=== PATIENT | male | born 1935 | race Caucasian/White ===

== ENCOUNTER 2016-06-27 12:32 | Observation (INO) | payer OTHER ==
[~2016-06-27] VITALS: Ht 170.2 cm; Wt 69.4 kg
[~2016-06-27 12:32] MED LIST: ACID CONTROL20 MG PO; AMOX TR-K CLV1 EAC4 PO; AMOXICILLIN500 MG PO; ANTIVERT25 MG PO; ASPIR 8181 M1 PO; ATORVASTATIN CA10 MG PO; COLACE100 MG PO; CRESTOR10 MG PO; DURAGESIC12 MCG TD; FAMOTIDINE20 MG PO; IPRATR-ALBUTEROL3 ML AEROSOL; KEFLEX500 MG PO; LIDODERM 5% P1 PATCH PO; LIDODERM 5% P1 PATCH TD; LIPITOR10 MG PO; LOPRESSOR25 MG PO; MECLIZINE HCL12.5 M1 PO; METOPROLOL SUCC25 MG PO; MIRALAX255 GM PO; MOBIC15 MG PO; MOTRIN400 MG PO; NAPROSYN375 MG PO; NAPROXEN375 M1 PO; NAPROXEN500 MG PO; NORCO 5/3251 TABLET PO; PANTOPRAZOLE SO40 MG PO; PEPCID20 MG PO; PREDNISONE20 MG PO; PREDNISONE50 MG PO; PROTONIX40 MG PO; SENNA S TABLET1 EACH PO; TRAMADOL HCL50 MG PO; ULTRACET1 TABLET PO; ULTRAM50 MG PO; VALIUM2 MG PO; ZITHROMAX250 MG PO
[2016-06-27 13:20] LABS: PTT 30.3 (25-32)
[2016-06-27 13:35] LABS: BASOPHIL COUNT 0.1 K/uL (0-0.1); CHLORIDE 104 mEq/L (99-109); EOSINOPHIL (%) 3.3 % (0-5); EOSINOPHIL COUNT 0.3 K/uL (0-0.3); HEMATOCRIT 41.2 % (38.0-50.0); IMMATURE GRANULOCYTE (%) 0.4 % (0.0-0.7); IMMATURE GRANULOCYTE COUNT 0.3 K/uL; MCH 31.2 PG (29.0-34.0); MCHC 34.2 G/DL (30.0-36.0); MCV 91.2 FL (86-99); MEAN PLAT.VOLUME 10.4 uM^3 (9.0-12.4); MONOCYTE (%) 11.6 % (3-12); NEUTROPHIL (%) 60.4 % (45-76); NEUTROPHIL COUNT 5.2 K/uL (1.8-6.4); PLATELET COUNT 253 K/uL (156-360); POTASSIUM 4.4 mEq/L (3.7-5.4); RBC DIS.WIDTH-CV 13.4 % (11.8-14.6); RED BLOOD COUNT 4.52 M/uL (4.00-5.50); SODIUM 135 mEq/L (136-147); WHITE BLOOD COUNT 8.6 K/uL (4.1-10.2)
[2016-06-27 13:36] LABS: AMYLASE 72 IU/L (1-118)
[2016-06-27 13:37] LABS: GLUCOSE 114 mg/dL (70-99)
[2016-06-27 13:38] LABS: ANION GAP 10 MEQ/L (2-14)
[2016-06-27 13:39] LABS: TOTAL BILIRUBIN 0.5 mg/dL (0.0-1.0)
[2016-06-27 13:40] LABS: TROP-I INTERPRETATION NEGATIVE; TROPONIN-I < 0.01 ng/mL (0.0-0.30)
[2016-06-27 13:41] LABS: ALKALINE PHOSPHATASE 66 IU/L (3-129); GFR ESTIMATE (CALCULATED) > 59 mL/min/
[2016-06-27 13:42] LABS: UREA NITROGEN (BUN) 18 mg/dL (9-23)
[2016-06-27 13:44] LABS: LIPASE 16 U/L (1.0-51.0)
[2016-06-27] MEDS ORDERED: ASPIR 8181 M1 PO (14:50)
[2016-06-27 17:16] VITALS: BP 124/75
[2016-06-27 20:41] VITALS: BP 122/73
[2016-06-28] VITALS: BP 109/59
[2016-06-28 04:19] VITALS: BP 104/60
[2016-06-28 07:23] LABS: HDL CHOLESTEROL 49 MG/DL (Desirable>=40); LDL CHOLESTEROL 83 mg/dL (Desirable<100); NON-HDL CHOLESTEROL 106 mg/dL (Desirable<160); TOTAL CHOLESTEROL 155 mg/dL (Desirable<200); TRIGLYCERIDES 113 MG/DL (Normal: <150)
[2016-06-28 08:05] VITALS: BP 135/67
[2016-06-28] MEDS ORDERED: ASPIR-LOW81 MG PO (09:55)
[2016-06-28] MEDS ORDERED: PRAVACHOL40 MG PO (09:57)
== END 2016-06-28 11:19 | disposition home or self-care (01) ==
LOC: EME 12:32 → 5WEST 14:02 → EDOF 14:02 → 5WEST 16:47
PROVIDERS: Emergency Medicine; Hospitalist
DX: G45.9 Transient cerebral ischemic attack, unspecified (principal); Z86.73 Personal history of transient ischemic attack (TIA), and cerebral infarction without residual deficits; I10 Essential (primary) hypertension; E78.5 Hyperlipidemia, unspecified; F17.200 Nicotine dependence, unspecified, uncomplicated; J44.9 Chronic obstructive pulmonary disease, unspecified; N40.0 Benign prostatic hyperplasia without lower urinary tract symptoms; Z82.49 Family history of ischemic heart disease and other diseases of the circulatory system
CPT/HCPCS: 70450; 70496; 70498; 70551; 71010; 80053; 80061; 81003; 82150; 83690; 84484; 85025; 85610; 85730; 93005; 99281; 99285; G0378; J1650

== ENCOUNTER 2016-06-30 10:08 | Emergency (ER) | payer OTHER ==
[~2016-06-30] VITALS: Ht 170.2 cm; Wt 69.7 kg
[~2016-06-30 10:08] MED LIST changes: +ASPIR-LOW81 MG PO; +PRAVACHOL40 MG PO
[2016-06-30 10:37] VITALS: BP 148/82
== END 2016-06-30 11:13 | disposition left against medical advice (07) ==
LOC: EME 10:08
DX: R42 Dizziness and giddiness (principal); Z53.21 Procedure and treatment not carried out due to patient leaving prior to being seen by health care provider
CPT/HCPCS: 71020; 80048; 85027; 93005

== ENCOUNTER 2016-07-15 18:27 | Observation (INO) | payer OTHER ==
[~2016-07-15] VITALS: Ht 177.8 cm; Wt 72.5 kg
[2016-07-15 18:52] LABS: HEMATOCRIT 39.5 % (38.0-50.0); MCH 30.8 PG (29.0-34.0); MCHC 34.2 G/DL (30.0-36.0); MCV 90.2 FL (86-99); PLATELET COUNT 230 K/uL (156-360); RBC DIS.WIDTH-CV 13.1 % (11.8-14.6); RBC DIS.WIDTH-SD 42.3 % (39-53); RED BLOOD COUNT 4.38 M/uL (4.00-5.50); WHITE BLOOD COUNT 8.5 K/uL (4.1-10.2)
[2016-07-15 19:02] LABS: AMYLASE 75 IU/L (1-118); CHLORIDE 109 mEq/L (99-109); SODIUM 136 mEq/L (136-147)
[2016-07-15 19:03] LABS: PROTHROMBIN TIME 10.4 (9.2-11.2); PTT 25.8 (25-32)
[2016-07-15 19:04] LABS: GLUCOSE 138 mg/dL (70-99)
[2016-07-15 19:05] LABS: ANION GAP 8 MEQ/L (2-14)
[2016-07-15 19:08] LABS: GFR ESTIMATE (CALCULATED) > 59 mL/min/
[2016-07-15 19:09] LABS: UREA NITROGEN (BUN) 18 mg/dL (9-23)
[2016-07-15 19:11] LABS: LIPASE 24 U/L (1.0-51.0)
[2016-07-15 19:14] LABS: TROP-I INTERPRETATION NEGATIVE; TROPONIN-I < 0.01 ng/mL (0.0-0.30)
[2016-07-15] MEDS ORDERED: LIPITOR40 MG PO (22:02)
[2016-07-16] VITALS (8 sets, daily range): BP systolic 127–185; BP diastolic 68–84
[2016-07-16 00:43] LABS: ADD MIUA? NO; BILIRUBIN NEGATIVE; BLOOD NEGATIVE; COLOR YELLOW ((YELLOW)); GLUCOSE (STRIP) NEGATIVE; KETONES NEGATIVE; LEUKOCYTES NEGATIVE; NITRITE NEGATIVE; PH, URINE 6.5 (5-8); PROTEIN (STRIP) NEGATIVE; SPECIFIC GRAVITY 1.036 (1.000-1.030); UCUL ADDED? NO; UROBILINOGEN 0.2 MG/DL (0.2-1.0)
[2016-07-16 00:50] LABS: AMPHETAMINE NEGATIVE (500 ng/mL); BARBITURATES NEGATIVE (200 ng/mL); BENZODIAZEPINES NEGATIVE (150 ng/mL); COCAINE NEGATIVE (150 ng/mL); INTERNAL CONTROLS VALID? YES; METHADONE NEGATIVE (200 ng/mL); METHAMPHETAMINE NEGATIVE (500 ng/mL); OPIATES (MORPHINE) NEGATIVE (100 ng/mL); OXYCODONE NEGATIVE (100 ng/mL); PHENCYCLIDINE NEGATIVE (25 ng/mL); PROPOXYPHENE NEGATIVE (300 ng/mL); THC CANNABINOIDS NEGATIVE (50 ng/mL); TRICYCLIC ANTIDEPRESSANTS NEGATIVE (300 ng/mL)
[2016-07-16 05:30] LABS: HDL CHOLESTEROL 45 MG/DL (Desirable>=40); LDL CHOLESTEROL 59 mg/dL (Desirable<100); NON-HDL CHOLESTEROL 78 mg/dL (Desirable<160); TOTAL CHOLESTEROL 123 mg/dL (Desirable<200); TRIGLYCERIDES 93 MG/DL (Normal: <150)
[2016-07-16 07:01] LABS: Estimated Average Glucose 114 mg/dL (70-123); HEMOGLOBIN A1c (GLYCOHEMOGLOB) 5.6 % HGB (Below 5.7)
[2016-07-17 03:37] VITALS: BP 127/74
[2016-07-17 06:39] LABS: HEMATOCRIT 37.3 % (38.0-50.0); MCH 30.9 PG (29.0-34.0); MCHC 33.8 G/DL (30.0-36.0); MCV 91.4 FL (86-99); MEAN PLAT.VOLUME 10.4 uM^3 (9.0-12.4); PLATELET COUNT 202 K/uL (156-360); RBC DIS.WIDTH-CV 13.3 % (11.8-14.6); RBC DIS.WIDTH-SD 44.1 % (39-53); RED BLOOD COUNT 4.08 M/uL (4.00-5.50); WHITE BLOOD COUNT 6.7 K/uL (4.1-10.2)
[2016-07-17 07:04] LABS: ANION GAP 8 MEQ/L (2-14); CHLORIDE 108 MEQ/L (99-109); GFR ESTIMATE (CALCULATED) > 59 mL/min/; POTASSIUM 3.6 MEQ/L (3.7-5.4); SAMPLE HEMOLYSIS CHECK 0; SAMPLE ICTERIC CHECK 0; SAMPLE LIPEMIA CHECK 0; SODIUM 139 MEQ/L (136-147); UREA NITROGEN (BUN) 11 mg/dL (9-23)
[2016-07-17 07:13] LABS: GLUCOSE 95 mg/dL (70-99)
[2016-07-17 07:56] VITALS: BP 155/71
[2016-07-17 12:00] VITALS: BP 159/98
[2016-07-17 16:03] VITALS: BP 139/82
[2016-07-17 20:00] VITALS: BP 140/84
[2016-07-18] VITALS (7 sets, daily range): BP systolic 138–190; BP diastolic 74–96
[2016-07-19 05:22] VITALS: BP 160/72
[2016-07-19 07:58] VITALS: BP 142/74
[2016-07-19 10:26] LABS: HEMATOCRIT 39.8 % (38.0-50.0); MCH 30.2 PG (29.0-34.0); MCHC 33.4 G/DL (30.0-36.0); MCV 90.5 FL (86-99); MEAN PLAT.VOLUME 10.7 uM^3 (9.0-12.4); PLATELET COUNT 190 K/uL (156-360); RBC DIS.WIDTH-CV 13.3 % (11.8-14.6); RBC DIS.WIDTH-SD 43.5 % (39-53); WHITE BLOOD COUNT 7.6 K/uL (4.1-10.2)
[2016-07-19 10:54] LABS: ANION GAP 9 MEQ/L (2-14); CHLORIDE 106 MEQ/L (99-109); GFR ESTIMATE (CALCULATED) > 59 mL/min/; GLUCOSE 140 mg/dL (70-99); POTASSIUM 3.7 MEQ/L (3.7-5.4); SAMPLE HEMOLYSIS CHECK 0; SAMPLE ICTERIC CHECK 0; SAMPLE LIPEMIA CHECK 0; SODIUM 138 MEQ/L (136-147); UREA NITROGEN (BUN) 11 mg/dL (9-23)
[2016-07-19 11:19] VITALS: BP 143/82
[2016-07-19 15:33] VITALS: BP 138/87
[2016-07-19 19:10] VITALS: BP 170/86
[2016-07-19 23:39] VITALS: BP 147/77
[2016-07-20 07:49] VITALS: BP 165/70
[2016-07-20 15:15] VITALS: BP 150/71
[2016-07-20] MEDS ORDERED: PLAVIX75 MG PO (15:33)
[2016-07-20] MEDS ORDERED: FLONASE16 G1 BOTH NARES (15:33)
== END 2016-07-20 18:56 ==
LOC: EME → EDBD 18:27 → EME 18:27 → EDOF 07-16 00:36 → 5SOUTH 07-16 00:36 → 4SOUTH 07-16 01:10 → 5SOUTH 07-16 22:08
PROVIDERS: Emergency Medicine; Hospitalist; Internal Medicine; Physician Assistant
DX: I63.9 Cerebral infarction, unspecified (principal); I69.351 Hemiplegia and hemiparesis following cerebral infarction affecting right dominant side; I69.328 Other speech and language deficits following cerebral infarction; I69.321 Dysphasia following cerebral infarction; I10 Essential (primary) hypertension; J34.89 Other specified disorders of nose and nasal sinuses; Z82.49 Family history of ischemic heart disease and other diseases of the circulatory system
CPT/HCPCS: 70450; 70496; 70498; 70551; 71010; 80047; 80048; 80061; 81003; 82150; 83036; 83690; 84484; 85027; 85610; 85730; 92507 GN; 92523 GN; 92610 GN; 93005; 94640; 94640 76; 97530 GO; 97530 GP; 99202; 99281; 99285; C9113; G0378; G8978 GP CM; G8979 GP CK; J1644; J7030; J7042

== ENCOUNTER 2016-09-27 22:56 | Emergency (ER) | payer OTHER ==
[~2016-09-27] VITALS: Ht 172.7 cm; Wt 62.8 kg
[~2016-09-27 22:56] MED LIST changes: +FLONASE16 G1 BOTH NARES; +LIPITOR40 MG PO; +PLAVIX75 MG PO
[2016-09-28 00:04] LABS: BASOPHIL COUNT 0.1 K/uL (0-0.1); EOSINOPHIL (%) 5.5 % (0-5); EOSINOPHIL COUNT 0.4 K/uL (0-0.3); HEMATOCRIT 36.2 % (38.0-50.0); IMMATURE GRANULOCYTE (%) 0.5 % (0.0-0.7); INSTRUMENT ABS NEUTROPHIL CT 3.4 K/uL; LYMPHOCYTE COUNT 1.6 K/uL (1.0-2.8); MCH 30.3 PG (29.0-34.0); MCV 89.2 FL (86-99); MEAN PLAT.VOLUME 9.8 uM^3 (9.0-12.4); MONOCYTE (%) 14.6 % (3-12); MONOCYTE COUNT 0.9 K/uL (0-0.8); NEUTROPHIL (%) 53.3 % (45-76); NEUTROPHIL COUNT 3.4 K/uL (1.8-6.4); PLATELET COUNT 259 K/uL (156-360); RBC DIS.WIDTH-CV 13.3 % (11.8-14.6); RBC DIS.WIDTH-SD 43.6 % (39-53); RED BLOOD COUNT 4.06 M/uL (4.00-5.50); WHITE BLOOD COUNT 6.4 K/uL (4.1-10.2)
[2016-09-28 00:13] LABS: CHLORIDE 109 mEq/L (99-109); POTASSIUM 3.7 mEq/L (3.7-5.4); SODIUM 138 mEq/L (136-147)
[2016-09-28 00:15] LABS: GLUCOSE 108 mg/dL (70-99)
[2016-09-28 00:16] LABS: ANION GAP 7 MEQ/L (2-14)
[2016-09-28 00:17] LABS: PROTHROMBIN TIME 10.6 (9.2-11.2); PTT 29.9 (25-32); TOTAL BILIRUBIN 0.6 mg/dL (0.0-1.0)
[2016-09-28 00:19] LABS: ALKALINE PHOSPHATASE 63 IU/L (3-129); GFR ESTIMATE (CALCULATED) > 59 mL/min/
[2016-09-28 00:20] LABS: UREA NITROGEN (BUN) 20 mg/dL (9-23)
[2016-09-28 00:21] LABS: DIRECT BILIRUBIN 0.3 mg/dL (0.0-0.3)
[2016-09-28 00:22] LABS: LIPASE 14 U/L (1.0-51.0)
[2016-09-28 03:02] LABS: BILIRUBIN NEGATIVE; BLOOD NEGATIVE; COLOR YELLOW ((YELLOW)); GLUCOSE (STRIP) NEGATIVE; KETONES NEGATIVE; LEUKOCYTES NEGATIVE; NITRITE NEGATIVE; PROTEIN (STRIP) 30; SPECIFIC GRAVITY 1.018 (1.000-1.030)
[2016-09-28 03:03] LABS: ADD MIUA? NO; UCUL ADDED? NO
[2016-09-28 06:12] VITALS: BP 145/88
== END 2016-09-28 06:21 ==
LOC: EME → EDBD 22:56 → EME 22:56
PROVIDERS: Emergency Medicine
DX: S00.93XA Contusion of unspecified part of head, initial encounter (principal); W19.XXXA Unspecified fall, initial encounter; Y92.129 Unspecified place in nursing home as the place of occurrence of the external cause; J44.9 Chronic obstructive pulmonary disease, unspecified; E78.5 Hyperlipidemia, unspecified; I10 Essential (primary) hypertension; K21.9 Gastro-esophageal reflux disease without esophagitis; Z86.73 Personal history of transient ischemic attack (TIA), and cerebral infarction without residual deficits; F17.200 Nicotine dependence, unspecified, uncomplicated
CPT/HCPCS: 70450; 71020; 80048; 80076; 81003; 83690; 85025; 85610; 85730; 93005; 99281; 99285

== ENCOUNTER 2016-10-21 11:14 | Emergency (ER) | payer OTHER ==
[~2016-10-21] VITALS: Ht 172.7 cm; Wt 61.8 kg
[2016-10-21 17:07] VITALS: BP 150/90
== END 2016-10-21 17:08 ==
LOC: EME 11:14
DX: S30.0XXA Contusion of lower back and pelvis, initial encounter (principal); W19.XXXA Unspecified fall, initial encounter; Y92.129 Unspecified place in nursing home as the place of occurrence of the external cause; I10 Essential (primary) hypertension; E78.5 Hyperlipidemia, unspecified
CPT/HCPCS: 72100; 72170; 99281; 99284

== ENCOUNTER 2016-11-15 22:46 | Emergency (ER) | payer OTHER ==
[~2016-11-15] VITALS: Ht 175.3 cm; Wt 75.0 kg
[2016-11-15 23:32] LABS: HEMATOCRIT 36.4 % (38.0-50.0); MCH 30.9 PG (29.0-34.0); MCHC 33.8 G/DL (30.0-36.0); MCV 91.5 FL (86-99); MEAN PLAT.VOLUME 9.5 uM^3 (9.0-12.4); PLATELET COUNT 254 K/uL (156-360); RBC DIS.WIDTH-CV 13.3 % (11.8-14.6); RBC DIS.WIDTH-SD 45.1 % (39-53); RED BLOOD COUNT 3.98 M/uL (4.00-5.50); WHITE BLOOD COUNT 8.4 K/uL (4.1-10.2)
[2016-11-15 23:47] LABS: CHLORIDE 105 mEq/L (99-109); POTASSIUM 4.6 mEq/L (3.7-5.4); SODIUM 138 mEq/L (136-147)
[2016-11-15 23:49] LABS: GLUCOSE 124 mg/dL (70-99)
[2016-11-15 23:50] LABS: ANION GAP 9 MEQ/L (2-14)
[2016-11-15 23:51] LABS: TOTAL BILIRUBIN 0.9 mg/dL (0.0-1.0)
[2016-11-15 23:52] LABS: TROP-I INTERPRETATION NEGATIVE; TROPONIN-I < 0.01 ng/mL (0.0-0.30)
[2016-11-15 23:53] LABS: ALKALINE PHOSPHATASE 88 IU/L (3-129); GFR ESTIMATE (CALCULATED) > 59 mL/min/
[2016-11-15 23:54] LABS: UREA NITROGEN (BUN) 18 mg/dL (9-23)
[2016-11-15 23:56] LABS: LIPASE 14 U/L (1.0-51.0)
[2016-11-16 03:20] LABS: ADD MIUA? YES; BILIRUBIN NEGATIVE; BLOOD SMALL; COLOR YELLOW ((YELLOW)); GLUCOSE (STRIP) NEGATIVE; KETONES NEGATIVE; LEUKOCYTES NEGATIVE; NITRITE NEGATIVE; PROTEIN (STRIP) NEGATIVE; SPECIFIC GRAVITY 1.011 (1.000-1.030)
[2016-11-16 03:28] LABS: BACTERIA NONE SEEN /HPF; EPITHELIAL CELLS RARE /HPF; HYALINE CASTS 0-5 /LPF; MUCUS TRACE /LPF; RED BLOOD CELLS 0-5 /HPF (0-5); UCUL ADDED? NO; WHITE BLOOD CELLS 0-5 /HPF (0-5)
[2016-11-16 03:49] LABS: AMPHETAMINE NEGATIVE (500 ng/mL); BARBITURATES NEGATIVE (200 ng/mL); BENZODIAZEPINES NEGATIVE (150 ng/mL); COCAINE NEGATIVE (150 ng/mL); INTERNAL CONTROLS VALID? YES; METHADONE NEGATIVE (200 ng/mL); METHAMPHETAMINE NEGATIVE (500 ng/mL); OPIATES (MORPHINE) NEGATIVE (100 ng/mL); OXYCODONE NEGATIVE (100 ng/mL); PHENCYCLIDINE NEGATIVE (25 ng/mL); PROPOXYPHENE NEGATIVE (300 ng/mL); THC CANNABINOIDS NEGATIVE (50 ng/mL); TRICYCLIC ANTIDEPRESSANTS PRESUMPTIVE POSITIVE (300 ng/mL)
[2016-11-16 10:14] VITALS: BP 127/72
== END 2016-11-16 10:19 ==
LOC: EME → EDBD 22:46 → EME 22:46
PROVIDERS: Emergency Medicine
DX: F03.90 Unspecified dementia, unspecified severity, without behavioral disturbance, psychotic disturbance, mood disturbance, and anxiety (principal); F32.9 Major depressive disorder, single episode, unspecified; J44.9 Chronic obstructive pulmonary disease, unspecified; E78.5 Hyperlipidemia, unspecified; I10 Essential (primary) hypertension; K21.9 Gastro-esophageal reflux disease without esophagitis; Z86.73 Personal history of transient ischemic attack (TIA), and cerebral infarction without residual deficits; D64.9 Anemia, unspecified
CPT/HCPCS: 70450; 71010; 80053; 81003; 83605; 83690; 83880; 84484; 85027; 87040; 93005; 99281; 99285; J1630; J2060; J3486; J7030

== ENCOUNTER 2017-01-12 09:06 | Emergency (ER) | payer OTHER ==
[~2017-01-12] VITALS: Ht 167.6 cm; Wt 62.2 kg
[2017-01-12 10:41] LABS: HEMATOCRIT 35.6 % (38.0-50.0); MCH 30.7 PG (29.0-34.0); MCHC 32.6 G/DL (30.0-36.0); MCV 94.2 FL (86-99); MEAN PLAT.VOLUME 9.6 uM^3 (9.0-12.4); PLATELET COUNT 246 K/uL (156-360); RBC DIS.WIDTH-CV 14.3 % (11.8-14.6); RBC DIS.WIDTH-SD 49.3 % (39-53); RED BLOOD COUNT 3.78 M/uL (4.00-5.50); WHITE BLOOD COUNT 8.7 K/uL (4.1-10.2)
[2017-01-12 11:20] LABS: CHLORIDE 107 mEq/L (99-109); POTASSIUM 4.4 mEq/L (3.7-5.4); SODIUM 142 mEq/L (136-147)
[2017-01-12 11:22] LABS: GLUCOSE 107 mg/dL (70-99)
[2017-01-12 11:23] LABS: ANION GAP 8 MEQ/L (2-14)
[2017-01-12 11:26] LABS: GFR ESTIMATE (CALCULATED) > 59 mL/min/
[2017-01-12 11:27] LABS: UREA NITROGEN (BUN) 22 mg/dL (9-23)
[2017-01-12 12:07] LABS: ADD MIUA? YES; BILIRUBIN NEGATIVE; BLOOD SMALL; COLOR YELLOW ((YELLOW)); GLUCOSE (STRIP) NEGATIVE; KETONES NEGATIVE; LEUKOCYTES NEGATIVE; NITRITE NEGATIVE; PROTEIN (STRIP) NEGATIVE; SPECIFIC GRAVITY 1.009 (1.000-1.030); UROBILINOGEN 0.2 MG/DL (0.2-1.0)
[2017-01-12 12:09] LABS: BACTERIA NONE SEEN /HPF; EPITHELIAL CELLS RARE /HPF; MUCUS NONE SEEN /LPF; RED BLOOD CELLS 0-5 /HPF (0-5); UCUL ADDED? NO; WHITE BLOOD CELLS 0-5 /HPF (0-5)
[2017-01-12 14:56] VITALS: BP 113/61
== END 2017-01-12 15:01 ==
LOC: EME → EDBD 09:06 → EME 09:06
PROVIDERS: Emergency Medicine
DX: F03.91 Unspecified dementia, unspecified severity, with behavioral disturbance (principal); K21.9 Gastro-esophageal reflux disease without esophagitis; J44.9 Chronic obstructive pulmonary disease, unspecified; I10 Essential (primary) hypertension; E78.5 Hyperlipidemia, unspecified; Z86.73 Personal history of transient ischemic attack (TIA), and cerebral infarction without residual deficits
CPT/HCPCS: 80048; 81003; 85027; 99281; 99285; J7040

== ENCOUNTER 2017-03-03 16:26 | Emergency (ER) | payer OTHER ==
[~2017-03-03] VITALS: Ht 170.2 cm; Wt 60.9 kg
[2017-03-03 17:40] VITALS: BP 14/76
== END 2017-03-03 19:53 ==
LOC: EME 16:26
DX: M54.5 Low back pain (principal); W18.30XA Fall on same level, unspecified, initial encounter; Y92.128 Other place in nursing home as the place of occurrence of the external cause; J44.9 Chronic obstructive pulmonary disease, unspecified; E78.5 Hyperlipidemia, unspecified; I10 Essential (primary) hypertension; K21.9 Gastro-esophageal reflux disease without esophagitis; Z86.73 Personal history of transient ischemic attack (TIA), and cerebral infarction without residual deficits; Z87.891 Personal history of nicotine dependence
CPT/HCPCS: 80048; 81003; 84484; 85027; 85610; 85730; 99281; 99282